=== PATIENT | female | born 1965 | race Caucasian/White ===

== ENCOUNTER 2020-03-07 10:07 | Outpatient (REF) | payer OTHER, SELFPAY | END 2020-03-07 10:08 | disposition home or self-care (01) | LOC: HO.LAB 10:07 | PROVIDERS: Visit Provider Hospitalist | DX: Z20.822 Contact with and (suspected) exposure to COVID-19 (principal) | CPT/HCPCS: 36415; U0003 ==

== ENCOUNTER 2023-07-04 09:51 | Outpatient (REF) | payer OTHER, SELFPAY ==
--- NOTE | ~2023-07-04 | XR_ITS ---
EXAMINATION: XR HIP, RIGHT CLINICAL INFORMATION: Pain in right hip COMPARISON: None available. TECHNIQUE: Two views of the right hip. FINDINGS: There is no narrowing cough right hip joint and no abnormal calcifications and soft tissues but there is marginal spurring seen medially extending from the femoral head. No fractures or subluxations. XR/XR hip RT min 2V IMPRESSION: Mild degenerative changes with marginal spurring causing medial aspect of the right femoral head
--- NOTE | ~2023-07-04 | XR_ITS ---
EXAMINATION: XR LUMBOSACRAL SPINE WITH OBLIQUES CLINICAL INFORMATION: Radiculopathy in the lumbar region COMPARISON: None available. TECHNIQUE: AP, both oblique, and lateral views of the lumbar spine. Lateral view of the lumbosacral junction. FINDINGS: Vertebral bodies are well aligned and intervertebral discs are preserved, except of grade 1 anterior listhesis and narrowing at the level of L4-L5 and facets arthropathy seen at the level of L4-L5 and L5-S1. There is no evidence of spondylolysis. XR/XR lumbar spine 4V min IMPRESSION: Degenerative changes with grade 1 anterior listhesis of L4 over L5 and facets arthropathy seen at the level of L4-L5 and L5-S1.
== END 2023-07-04 09:52 | disposition home or self-care (01) ==
LOC: HO.XRAY 09:51
PROVIDERS: Visit Provider Internal Medicine
DX: M25.551 Pain in right hip (principal); M54.50 Low back pain, unspecified
CPT/HCPCS: 72110; 73502